=== PATIENT | male | born 1975 | race African-American/Black ===

== ENCOUNTER 2025-06-24 17:48 | Emergency (ER) | payer OTHER, SELFPAY ==
--- OUTSIDE RECORDS SUMMARY | 2025-06-10 14:15 | XMS_ITS | Encounter Summary ---
Author Organization [facility] FanTrail s tem Address [id number] [address] [place] [address] Care Team Providers Care School Transportation Director Name Role Phone Andrew Hightower MD Primary Care Provider [phone] Reason for Visit * ReasonCommentsSleep ApneaLS: 01/23/2024Needs supplies and believes time to get new machineDME: [facility] Encounter Details DateTypeDepartmentCare Team (Latest Contact Info)Dhaxeushxby62/27/2025 3:15 PM EDTOffice Visit [facility] [address] [place] [address] Michell San MD [address] [place] [address] DANIELA (obstructive sleep apnea) (Primary Dx); Aerophagia; Difficulty with BiPAP use Social History Tobacco UseTypesPacks/DayYears UsedDateSmoking Tobacco: FormerSmokeless Tobacco: NeverAlcohol UseStandard Drinks/WeekCommentsYes0 (1 standard drink = 0.6 oz pure alcohol)OCCASIONALChildcareAnswerDate OrjmmsruQoecxfeobNpwahtu27/12/2019 EmploymentAnswerDate BenuexnxRvuwqntwbuKohvaxi31/12/2019Hunger ScreeningAnswer Date RecordedWithin the past 12 months we worried whether our food would run out before we got money to buy more.Never True03/14/2025Within the past 12 months the food we bought just didn't last and we didn't have money to get more.Never True03/14/2025Purpose - LifeAnswerDate RecordedPurpose and direction in life Hkzdcpt5109/25/2020ex and Gender InformationValueDate RecordedSex Assigned at BirthNot on fileLegal PznCrrp6901/07/2016 11:43 AM EDTGender IdentityNot on file Sexual OrientationNot on filedocumented as of this encounter Last Filed Vital Signs Vital SignReadingTime TakenCommentsBlood Xqagqxxy063/7810 3:27 PM EDT Rszhj697906/10/2025 3:27 PM EDTTemperature--Respiratory Rate--Oxygen Pgttquicse26% 06/10/2025 3:27 PM EDTInhaled Oxygen Concentration--Ezyijx902.8 kg (317 lb) 06/10/2025 3:27 PM EFGKopuvo230.3 cm (5' 9.02 )06/10/2025 3:27 PM EDTBody Mass Index46.7906/10/2025 3:27 PM EDTdocumented in this encounter Patient Instructions * Patient Instructions* Michell San MD - 06/10/2025 3:15 PM EDT 1. Patient's machine was last replaced in 2015. Would use and benefit from a new PAP machine that is remote capable. Decrease the minimum EPAP to 6 for aerophagia. 2. Download reviewed 3. [place] noted, normal 4. Follow up virtual visit after set up documented in this encounter Progress Notes * Michell San MD - 06/10/2025 3:15 PM EDT Images from the original note were not included. [address] [place] [address] Patient: Dilshad Mcmahon Date of : 1975 Encounter Date: 06/10/2025 History of Present Illness: The patient is a 50 y.o. male, is here for follow up of DANIELA. He is here today unaccompanied. Since our last visit his primary care provider put him on Ozempic and he has been intentionally losing weight. Since he is lost weight he has noted some pressure intolerance and aerophagia. Mask interface: FFM (Simplus, large) [] Epistaxis [x] Aerophagia [x] Pressure intolerance [] Skin irritation [] Mask leak Saturdays are long haul days. BT- 9-10p (noise machine, son (2) in bed, in bed, no pets) JUMA- depends on son WASO- around 3a to urinate, if son's moving WT- 4:20a (first alarm goes off) Naps- not during week days (sometimes on Tuesday and Sundays) Cleaning machine / cleaning supplies = soap and water Nocturnal behaviors / RLS = denies Drowsy driving = denies Physical Exam: BP 145/78 (BP Site: Right Arm, BP Postition: Sitting) Pulse 69 Ht 175.3 cm (5' 9.02 ) Wt (!) 143.8 kg (317 lb) SpO2 96% BMI 46.79 kg/m?? General Appearance - Awake, alert, oriented, in no acute distress 06/10/2025 3:00 PM 01/23/2024 3:00 PM [place] Sleepiness Scale Sitting and Reading 0 0 Watching TV 0 0 Sitting inactive in a public place (theater, meeting) 0 0 As a passenger in a car for an hour without a break 1 0 Lying down in the afternoon to rest 2 2 Sitting and talking to someone 0 0 Sitting quietly after lunch (without alcohol) 0 0 In a car, while stopped for a few minutes in traffic 0 0 Total 3 2 Assessment: 1. Obstructive sleep apnea (initial testing unable for review, prior notation describes an AHI of 161, PSG 2002) currently on min EPAP 8, max IPAP 18, PS 4 cm of water (retitration 2016, weight 351) with excellent benefit and compliance but worsening pressure intolerance /aerophagia due to weight loss 2. Coronary disease 3. Essential hypertension 4. Aerophagia 5. Obesity, BMI 46 Plan: 1. Patient's machine was last replaced in 2016. Would use and benefit from a new PAP machine that is remote capable. Decrease the minimum EPAP to 6 for aerophagia. 2. Download reviewed 3. [place] noted, normal 4. Follow up virtual visit after set up Michell San MD Pulmonary and Sleep Medicine [facility] Past Medical, Family, and Social History Update: The following portions of the patient's history were reviewed and updated as appropriate: allergies, current medications, past family history, past medical history, past social history, past surgicalhistory and problem list. 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 ([facility]) 09/10/2019 Coronary artery disease Diabetes mellitus type 2, controlled ([facility] DM (diabetes mellitus) ([facility] HLD (hyperlipidemia) HTN (hypertension) Nicotine dependence DANIELA (obstructive sleep apnea) cpap Past Surgical History: Procedure Laterality Date CARDIAC CATHETERIZATION COLONOSCOPY N/A 06/05/2020 Performed by Yunior Tello MD at [facility] CORONARY STENT PLACEMENT EGD N/A 06/05/2020 Performed by Yunior Tello MD at [facility] RHINOPLASTY Family History Problem Relation Age of Onset Cancer Mother Hypertension Father Diabetes Father Current Outpatient Medications Medication Sig Dispense Refill aspirin 81 mg Take 1 tablet (81 mg total) by mouth in the morning. atorvastatin (LIPITOR) 40 mg tablet TAKE 1 TABLET BY MOUTH EVERY DAY 30 tablet 1 cloNIDine (CATAPRES) 0.1 mg tablet Take 1 tablet (0.1 mg total) by mouth in the morning. cyanocobalamin (vitamin B-12) 1000 MCG tablet Take 1 tablet (1,000 mcg total) by mouth every other day. ferrous sulfate 325 (65 FE) mg tablet Take 1 tablet (325 mg total) by mouth in the morning and 1 tablet (325 mg total) in the evening. Take with meals. isosorbide mononitrate (IMDUR) 60 mg 24 hr tablet Take 1 tablet (60 mg total) by mouth daily. 30 tablet 11 losartan-hydroCHLOROthiazide (HYZAAR) 100-25 mg per tablet Take 1 tablet by mouth in the morning. metFORMIN (GLUCOPHAGE) 500 mg tablet Take 2 tablets (1,000 mg total) by mouth in the morning and 2 tablets (1,000 mg total) before bedtime. TURMERIC ORAL Take by mouth. No current facility-administered medications for this visit. (All medications reviewed and updated by provider since last office visit or hospitalization) Allergies: No known allergies Tobacco History: Social History Tobacco Use Smoking Status Former Smokeless Tobacco Never (If patient a smoker, smoking cessation counseling offered) Social History: Social History Substance and Sexual Activity Alcohol Use Yes Alcohol/week: 0.0 standard drinks of alcohol Comment: OCCASIONAL documented in this encounter Plan of Treatment DateTypeDepartmentCare Team (Latest Contact Info)Twrtbisdlku26/26/2026 3:15 PM ESTOffice Visit [facility] [address] [place] [address] Michell Sna MD [address] [place] [address] documented as of this encounter Visit Diagnoses Diagnosis DANIELA (obstructive sleep apnea)- Primary Obstructive sleep apnea (adult) (pediatric) Aerophagia Gastrointestinal malfunction arising from mental factors Difficulty with BiPAP use documented in this encounter Care Teams Team MemberRelationshipSpecialtyStart DateEnd Date Andrew Hightower MD [facility] [place] [address] PCP - General01/31/17documented as of this encounter
[2025-06-24 17:52] VITALS: BP 156/88; PULSE 73; TEMP 36.6; O2SAT 95; BMI 45.9
--- NOTE | 2025-06-24 18:04 | XR_ITS ---
The [address] [address] Patient Name: BLANQUITA FERGUSON MRN: [id number] date: 1975 Sex: M Assigned Patient Location: ER Current Patient Location: ER Accession/Order Number: [id number] Exam Date: 06/24/2025 18:05 Report Date: 06/24/2025 18:35 At the request of: ANGIE ALLEN Procedure: XR chest 1V PA CHEST: CLINICAL HISTORY: CP COMPARISON: None Unremarkable cardiomediastinal silhouette. Lungs clear. No effusion or pneumothorax. XR/XR chest 1V IMPRESSION: Negative acute pleural-parenchymal disease. Impression dictated by: Ede Guaman M.D. 06/24/2025 6:35 PM Dictation Location: [place] [address] Electronically authenticated by: [id number] Y Date: 06/24/2025 18:35
--- NOTE | 2025-06-24 18:04 | ED.CHESTPAI1 ---
Documented by User: Kaycee Mahajan 06/24/25 19:02 HPI - Chest Pain General Chief Complaint: Chest Pain Stated Complaint: CHEST PAIN IN COLLAR BONE AREA Time Seen by Provider: 06/24/25 18:00 Source: patient Mode of arrival: walk-in Limitations: no limitations History of Present Illness HPI narrative: 50 year old male presents to the ED for left upper chest pain. Onset was 06/20/25. Denies fever, chills, injury, SOB, dizziness, diaphoresis. States he did weight lifting the day prior; chest and shoulders. He states normally his soreness does not last this long. He does have a cardiac stent. Denies recent travel or surgery. The pain is not worse with movement or inspiration. Denies pain currently. Related Data Home Medications ?Medication ?Instructions ?Recorded ?Confirmed aspirin 81 mg capsule 81 mg PO DAILY 06/24/25 06/24/25 atorvastatin 40 mg tablet 40 mg PO DAILY 06/24/25 06/24/25 clonidine HCl 0.1 mg tablet 0.1 mg PO DAILY 06/24/25 06/24/25 metformin 1,000 mg tablet 1,000 mg PO BID 06/24/25 06/24/25 Allergies Allergy/AdvReac Type Severity Reaction Status Date / Time No Known Drug Allergies Allergy Verified 06/24/25 18:00 Review of Systems ROS Constitutional Denies: fever or chills Ears, nose, mouth, and throat Denies: neck pain Cardiovascular Reports: chest pain; Denies: palpitations or edema Respiratory Denies: shortness of breath or cough Gastrointestinal Denies: abdominal pain, nausea or vomiting Musculoskeletal Denies: back pain, neck pain or extremity pain Neurological Denies: headache, weakness in extremities or dizziness PFSH PFSH Social History Little interest or pleasure in doing things: not at all Feeling down, depressed, or hopeless: not at all Exam Constitutional Vital Signs, click to edit/add: Last Vital Signs Temp 97.8 F 06/24/25 17:52 Pulse 72 06/24/25 19:28 Resp 16 06/24/25 19:28 BP 148/82 H 06/24/25 19:28 Pulse Ox 99 06/24/25 19:28 O2 Del Method Room Air 06/24/25 19:28 Common normals: no apparent distress and oriented x3 General appearance: cooperative HENMT Common normals: moist oral mucous membranes Eye Common normals: conjunctivae normal and no scleral icterus Neck & C-Spine Common normals: supple Chest Common normals: palpation of chest normal Chest: symmetrical chest wall rise Respiratory Common normals: normal respiratory effort and clear to auscultation bilaterally Effort & inspection: able to speak in complete sentences and symmetric chest movement Cardio Common normals: regular rate and regular rhythm Neuro Common normals: oriented x3, moves all extremities and no focal motor deficits Sensorium/orientation: awake and alert Speech: speech normal Course Vital Signs Vital signs: Vital Signs Temperature 97.8 F 06/24/25 17:52 Pulse Rate 73 06/24/25 17:52 Respiratory Rate 18 06/24/25 17:52 Blood Pressure 156/88 H 06/24/25 17:52 Pulse Oximetry 95 06/24/25 17:52 Oxygen Delivery Method Room Air 06/24/25 17:52 Temperature 97.8 F 06/24/25 17:52 Pulse Rate 72 06/24/25 19:28 Respiratory Rate 16 06/24/25 19:28 Blood Pressure 148/82 H 06/24/25 19:28 Pulse Oximetry 99 06/24/25 19:28 Oxygen Delivery Method Room Air 06/24/25 19:28 MDM - Chest Pain MDM Narrative Medical decision making narrative: Chest x-ray was negative for acute findings. Laboratory studies were unremarkable, including the troponin level. Symptom onset was 06/20/25. Findings were discussed with the patient. He will be discharged home at the recommendation of the ED attending. Follow up with pcp for a recheck, further evaluation and treatment. Return to the ED if symptoms worsen. Differential Diagnosis Differential diagnosis: Likely atypical chest pain, st elevation myocardial infarction, costochondritis and chest pain Medical Records Data Attestation: I reviewed the patient's medical records. Lab Data Attestation: I reviewed the patient's lab results. Labs: Lab Results 06/24/25 Range/Units 18:20 WBC 7.0 (4.0-11.0) 10^3/uL RBC 4.20 L (4.70-6.10) 10^6/uL Hgb 13.1 L (14.0-18.0) g/dL Hct 38.1 L (42.0-54.0) % MCV 90.7 (80.0-94.0) fL MCH 31.2 (25.9-34.0) pg MCHC 34.4 (29.9-35.2) g/dL RDW 12.4 (11.0-15.0) % Plt Count 273 (150-450) 10^3/uL MPV 8.0 L (9.5-13.5) fL Neut % (Auto) 49.8 (43.0-75.0) % Lymph % (Auto) 34.6 (20.5-60.0) % Mathews % (Auto) 10.1 (1.7-12.0) % Eos % (Auto) 4.3 (0.9-7.0) % Baso % (Auto) 0.9 (0.2-2.0) % Neut # (Auto) 3.5 (1.4-6.5) 10^3/uL Lymph # (Auto) 2.4 (1.2-3.8) 10^3/uL Mathews # (Auto) 0.7 (0.3-0.8) 10^3/uL Eos # (Auto) 0.3 (0.0-0.7) 10^3/uL Baso # (Auto) 0.1 (0.0-0.1) 10^3/uL Abs Immat Gran (auto) 0.02 (0.00-0.03) 10^3/uL Imm/Tot Granulo (auto) 0.3 (0.0-0.5) % Sodium 141 (136-145) mmol/L Potassium 3.6 (3.5-5.1) mmol/L Chloride 105 (98-107) mmol/L Carbon Dioxide 30.7 (21.0-32.0) mmol/L Anion Gap 8.9 BUN 12.0 (7.0-18.0) mg/dL Creatinine 1.37 H (0.70-1.30) mg/dL Est GFR ( Amer) >60 (>=60 mL/min/1.73m^2) Est GFR (Non-Af Amer) 55 L (>=60 mL/min/1.73m^2) BUN/Creatinine Ratio 8.8 Glucose 95 (74-106) mg/dL Calcium 9.3 (8.5-10.1) mg/dL Total Bilirubin 0.5 (0.2-1.0) mg/dL AST 19 (15-37) U/L ALT 37 (16-63) U/L Alkaline Phosphatase 91 (46-116) U/L Troponin I High Sens 5.5 (4.0-76.1) pg/mL Total Protein 7.1 (6.4-8.2) g/dL Albumin 3.4 (3.4-5.0) g/dL Globulin 3.7 g/dL Albumin/Globulin Ratio 0.9 Imaging Data Chest x-ray: Attestation: I have reviewed the pertinent imaging results. Radiologist's impression: ITS Impressions Chest X-Ray 06/24/25 18:04 IMPRESSION: Negative acute pleural-parenchymal disease. Impression dictated by: Ede Guaman M.D. 06/24/2025 6:35 PM Dictation Location: [employer] Electronically authenticated by: [id number] Y Date: 06/24/2025 18:35 ECG Data Attestation: ?I have reviewed the pertinent ECG results. (EKG was reviewed by the attending physician. It showed sinus rhythm at a rate of 68. No acute ST segment changes. ) Interpretation: Measurements Intervals [place] Rate: 71 P: 46 AR: 176 QRS: 6 QRSD: 90 T: -18 QT: 346 QTc: 368 Interpretive Statements 1100 Sinus rhythm 8102 Low QRS voltage in chest leads 9120 atypical ECG No previous ECG available for comparison Heart Score History: Slightly/Non-Suspicious ECG: Normal Age: >45-<65 years Risk Factors: >3 Risk Factors/ HX of CAD:2 Troponin: <Normal Limit Total Heart Score Recommendations & Risks:: 3 Discharge Plan Discharge Chief Complaint: Chest Pain Clinical Impression: Atypical chest pain Patient Disposition: Home, Self-Care Time of Disposition Decision: 19:00 Condition: Good Mode of Transportation: Private Vehicle Prescriptions / Home Meds: No Action atorvastatin 40 mg tablet 40 mg PO DAILY clonidine HCl 0.1 mg tablet 0.1 mg PO DAILY metformin 1,000 mg tablet 1,000 mg PO BID aspirin 81 mg capsule 81 mg PO DAILY Print Language: Micronesian Instructions: Chest Pain (ED), Chest Wall Pain (ED) Additional Instructions: Return to the ED for worsening symptoms. Referrals: AJ JOHNSON [Primary Care Provider, Family Practice] - 1 week Discharge Date/Time: 06/24/25 19:32 Documented by User: Aj Gutierrez DO 06/25/25 07:11 HPI - Chest Pain General Chief Complaint: Chest Pain Stated Complaint: CHEST PAIN IN COLLAR BONE AREA Time Seen by Provider: 06/24/25 18:00 Related Data Home Medications ?Medication ?Instructions ?Recorded ?Confirmed aspirin 81 mg capsule 81 mg PO DAILY 06/24/25 06/24/25 atorvastatin 40 mg tablet 40 mg PO DAILY 06/24/25 06/24/25 clonidine HCl 0.1 mg tablet 0.1 mg PO DAILY 06/24/25 06/24/25 metformin 1,000 mg tablet 1,000 mg PO BID 06/24/25 06/24/25 Allergies Allergy/AdvReac Type Severity Reaction Status Date / Time No Known Drug Allergies Allergy Verified 06/24/25 18:00 PFSH PFSH Social History Little interest or pleasure in doing things: not at all Feeling down, depressed, or hopeless: not at all Exam Constitutional Vital Signs, click to edit/add: Last Vital Signs Temp 97.8 F 06/24/25 17:52 Pulse 72 06/24/25 19:28 Resp 16 06/24/25 19:28 BP 148/82 H 06/24/25 19:28 Pulse Ox 99 06/24/25 19:28 O2 Del Method Room Air 06/24/25 19:28 Course Vital Signs Vital signs: Vital Signs Temperature 97.8 F 06/24/25 17:52 Pulse Rate 73 06/24/25 17:52 Respiratory Rate 18 06/24/25 17:52 Blood Pressure 156/88 H 06/24/25 17:52 Pulse Oximetry 95 06/24/25 17:52 Oxygen Delivery Method Room Air 06/24/25 17:52 Temperature 97.8 F 06/24/25 17:52 Pulse Rate 72 06/24/25 19:28 Respiratory Rate 16 06/24/25 19:28 Blood Pressure 148/82 H 06/24/25 19:28 Pulse Oximetry 99 06/24/25 19:28 Oxygen Delivery Method Room Air 06/24/25 19:28 MDM - Chest Pain Lab Data Labs: Lab Results 06/24/25 Range/Units 18:20 WBC 7.0 (4.0-11.0) 10^3/uL RBC 4.20 L (4.70-6.10) 10^6/uL Hgb 13.1 L (14.0-18.0) g/dL Hct 38.1 L (42.0-54.0) % MCV 90.7 (80.0-94.0) fL MCH 31.2 (25.9-34.0) pg MCHC 34.4 (29.9-35.2) g/dL RDW 12.4 (11.0-15.0) % Plt Count 273 (150-450) 10^3/uL MPV 8.0 L (9.5-13.5) fL Neut % (Auto) 49.8 (43.0-75.0) % Lymph % (Auto) 34.6 (20.5-60.0) % Mathews % (Auto) 10.1 (1.7-12.0) % Eos % (Auto) 4.3 (0.9-7.0) % Baso % (Auto) 0.9 (0.2-2.0) % Neut # (Auto) 3.5 (1.4-6.5) 10^3/uL Lymph # (Auto) 2.4 (1.2-3.8) 10^3/uL Mathews # (Auto) 0.7 (0.3-0.8) 10^3/uL Eos # (Auto) 0.3 (0.0-0.7) 10^3/uL Baso # (Auto) 0.1 (0.0-0.1) 10^3/uL Abs Immat Gran (auto) 0.02 (0.00-0.03) 10^3/uL Imm/Tot Granulo (auto) 0.3 (0.0-0.5) % Sodium 141 (136-145) mmol/L Potassium 3.6 (3.5-5.1) mmol/L Chloride 105 (98-107) mmol/L Carbon Dioxide 30.7 (21.0-32.0) mmol/L Anion Gap 8.9 BUN 12.0 (7.0-18.0) mg/dL Creatinine 1.37 H (0.70-1.30) mg/dL Est GFR ( Amer) >60 (>=60 mL/min/1.73m^2) Est GFR (Non-Af Amer) 55 L (>=60 mL/min/1.73m^2) BUN/Creatinine Ratio 8.8 Glucose 95 (74-106) mg/dL Calcium 9.3 (8.5-10.1) mg/dL Total Bilirubin 0.5 (0.2-1.0) mg/dL AST 19 (15-37) U/L ALT 37 (16-63) U/L Alkaline Phosphatase 91 (46-116) U/L Troponin I High Sens 5.5 (4.0-76.1) pg/mL Total Protein 7.1 (6.4-8.2) g/dL Albumin 3.4 (3.4-5.0) g/dL Globulin 3.7 g/dL Albumin/Globulin Ratio 0.9 Imaging Data Chest x-ray: Radiologist's impression: ITS Impressions Chest X-Ray 06/24/25 18:04 IMPRESSION: Negative acute pleural-parenchymal disease. Impression dictated by: Ede Guaman M.D. 06/24/2025 6:35 PM Dictation Location: [facility] Electronically authenticated by: [id number] Y Date: 06/24/2025 18:35 Heart Score Total Heart Score Recommendations & Risks:: 3 Discharge Plan Discharge Chief Complaint: Chest Pain Clinical Impression: Atypical chest pain Patient Disposition: Home, Self-Care Time of Disposition Decision: 19:00 Condition: Good Mode of Transportation: Private Vehicle Prescriptions / Home Meds: No Action atorvastatin 40 mg tablet 40 mg PO DAILY clonidine HCl 0.1 mg tablet 0.1 mg PO DAILY metformin 1,000 mg tablet 1,000 mg PO BID aspirin 81 mg capsule 81 mg PO DAILY Print Language: Micronesian Instructions: Chest Pain (ED), Chest Wall Pain (ED) Additional Instructions: Return to the ED for worsening symptoms. Referrals: AJ JOHNSON [Primary Care Provider, Family Practice] - 1 week Discharge Date/Time: 06/24/25 19:32
--- NOTE | 2025-06-24 18:11 | ECG_ITS ---
The [facility] Test Date: 2025-06-24 Pat Name: Dilshad Mcmahon Department: Room: - Gender: Male [employer] Representative: : 1975 Requested By: [id number] Order Number: [id number] Reading MD: ISIS BERMAN M.D. Measurements Intervals [place] Rate: 71 P: 46 IN: 176 QRS: 6 QRSD: 90 T: -18 QT: 346 QTc: 368 Interpretive Statements 1100 Sinus rhythm 8102 Low QRS voltage in chest leads 9120 atypical ECG No previous ECG available for comparison Electronically Signed On 06-24-2025 19:24:12 EST by ISIS BERMAN M.D.
[2025-06-24 18:37] LABS: Hematocrit 38.1 % (42.0-54.0); Hemoglobin 13.1 g/dL (14.0-18.0); Immature Granulocytes Abs Auto 0.02 10^3/uL (0.00-0.03); Immature Granulocytes Pct Auto 0.3 % (0.0-0.5); Lymphocytes Absolute Auto 2.4 10^3/uL (1.2-3.8); Mean Corpuscular HGB Conc 34.4 g/dL (29.9-35.2); Mean Corpuscular Hemoglobin 31.2 pg (25.9-34.0); Mean Corpuscular Volume 90.7 fL (80.0-94.0); Platelet Count 273 10^3/uL (150-450); Red Blood Count 4.20 10^6/uL (4.70-6.10); White Blood Count 7.0 10^3/uL (4.0-11.0)
--- OUTSIDE RECORDS SUMMARY | 2025-06-24 18:46 | XMS_ITS | Clinical Summary ---
Author Organization [facility] Address [address] [place] [address] Care Team Providers Care Pulp House Supervisor Name Role Phone Andrew Hightower MD Primary Care Provider [phone] Allergies No known active allergies Medications MedicationSigDispense QuantityRefillsLast FilledStart DateEnd DateStatus aspirin (Aspir-Low) 81 MG EC tablet 1 (one) time each day at the same time.Active Turmeric (QC Tumeric Complex) 500 MG capsule 1 (one) time each day at the same time.Active fluticasone (Flonase) 50 MCG/ACT nasal spray 1 (one) time each day at the same time PRNActive cyanocobalamin (Vitamin B-12) 1000 MCG tablet Take 1,000 mcg by mouth every other dayActive ferrous sulfate 325 (65 Fe) MG EC tablet Take 325 mg by mouth in the morning and 325 mg before bedtime. Do not crush, chew, or split..Active metFORMIN (Glucophage) 1000 MG tablet Indications:Controlled type 2 diabetes mellitus without complication, without long-term current use of insulin (HCC)TAKE 1 TABLET (1,000 MG) BY MOUTH IN THE MORNING AND IN THE EVENING WITH MEALS 200 tablet 4Active empagliflozin (Jardiance) 25 MG Indications:Microalbuminuric diabetic nephropathy (HCC)Take 1 tablet (25 mg) by mouth Daily 90 tablet 5Active isosorbide mononitrate ER (Imdur) 60 MG 24 hr tablet Indications:Essential hypertensionTAKE 1 TABLET BY MOUTH EVERY DAY 100 tablet 5Active losartan-hydroCHLOROthiazide (Hyzaar) 100-25 MG tablet Indications:Essential hypertensionTAKE 1 TABLET BY MOUTH EVERY DAY 100 tablet 5Active atorvastatin (Lipitor) 40 MG tablet Indications:Hyperlipidemia, unspecified hyperlipidemia typeTAKE 1 TABLET BY MOUTH EVERY DAY 100 tablet 5Active cloNIDine (Catapres) 0.1 MG tablet Indications:Benign essential hypertensionTake 1 tablet (0.1 mg) by mouth Daily TAKE 1 TABLET BY MOUTH EVERY DAY 90 tablet 5Active Semaglutide, 2 MG/DOSE, 8 MG/3ML solution pen-injector Indications:Type 2 diabetes mellitus with other specified complication, without long-term current use of insulin (HCC)Inject 2 mg under the skin 1 (one) time per week 8 mL 5Active baclofen (Lioresal) 10 MG tablet Indications:Hip strain, right, initial encounterTAKE 1 TABLET BY MOUTH THREE TIMES A DAY NEEDED FOR MUSCLE SPASMS FOR 7 DAYS 21 tablet 5Active baclofen (Lioresal) 10 MG tablet Indications:Hip strain, right, initial encounterTake 1 tablet (10 mg) by mouth 3 (three) times a day as needed for muscle spasms for up to 7 days 21 tablet 5108/24/2024Discontinued Active Problems ProblemNoted DateDiagnosed DateRight inguinal pain03/18/2025 Assessment & Plan (03/18/2025 3:27 PM EDT): Probably related to back and pinched nerve HTN (hypertension)03/27/2024Type 2 diabetes mellitus with other specified phmnkhfewxph80/13/2024 Assessment & Plan (03/18/2025 3:16 PM EDT): No Tobacco use Follow ADA 1800 diet low carbohydrate Continue Med Compliance Goal LDL less than 100Goal BP 130/80 Goal HgbA1c < 7.0% Monitor Feet, monitor for infection Needs Exercise Yearly eye exams Prior to your visit today we reviewed your chart and outlined testing and treatment needed foryour care. Reviewed poissble complications of diabetes including, loss of vision, kidney failure and increased risk of heart attacks and stroke. We made recommendations on how to control your blood sugars, and minimize your risk of these complications. We discussed your current barriers to a healthy living and importance of healthy diet and exercise. BMI 45.0-49.9, adult11/07/2023therosclerosis of [place] coronary artery of [place] heart with unstable angina kijbgupp36/02/2023oronary artery disease due to type 2 diabetes mxyrrtye93/24/2023 Assessment & Plan (11/07/2023 3:52 PM EDT): No Tobacco use Follow ADA 1800 diet low carbohydrate Continue Med Compliance Goal LDL less than 100Goal BP 130/80 Goal HgbA1c < 7.0% Monitor Feet, monitor for infection Needs Exercise Yearly eye exams Prior to your visit today we reviewed your chart and outlined testing and treatment needed foryour care. Reviewed poissble complications of diabetes including, loss of vision, kidney failure and increased risk of heart attacks and stroke. We made recommendations on how to control your blood sugars, and minimize your risk of these complications. We discussed your current barriers to a healthy living and importance of healthy diet and exercise. Asthmatic ruahssfhis31/24/2023enign essential calvbyolsyxy51/24/2023 Assessment & Plan (03/18/2025 3:16 PM EDT): Our specific goals, for your hypertension, is to keep your blood pressure less than 140/90, and theimportance of weight control. We made recommendations on how to control your blood pressure, and minimize your risk of these copmplications. We also discussed your current barriers to a healthy living and importance of healthy diet and exercise. Prior to your visit today we have reviewed your chart and formed a plan to assist with providing you the best possible care. We reviewed the possible complications of hypertension including, stroke, heart failure and kidney impairment. In addition, we discussed your medications, the importance of taking them as prescribed. DASH diet handouts Assessment & Plan (11/07/2023 3:52 PM EDT): Our specific goals, for your hypertension, is to keep your blood pressure less than 140/90, and theimportance of weight control. We made recommendations on how to control your blood pressure, and minimize your risk of these copmplications. We also discussed your current barriers to a healthy living and importance of healthy diet and exercise. Prior to your visit today we have reviewed your chart and formed a plan to assist with providing you the best possible care. We reviewed the possible complications of hypertension including, stroke, heart failure and kidney impairment. In addition, we discussed your medications, the importance of taking them as prescribed. DASH diet handouts Gastroesophageal reflux disease without tbllqmxoqkh45/24/2023Hyperlipidemia, wawbxshmzvc43/24/2023 Assessment & Plan (11/07/2023 3:58 PM EDT): This is a chronic medical condition that is stable since last assessment. No changes in treatment are suggested at this time. Continue Current meds. Iron deficiency tfzxhk2801/05/2023Lipoprotein deficiency tzznusbr88/24/2023 Microalbuminuric diabetic vsttzsmfoxg15/24/2023 Assessment & Plan (03/18/2025 3:18 PM EDT): A1c went stayed at 6.2 Mild concentric left ventricular hypertrophy (LVH)01/05/2023Morbid (severe) obesity due to excess mzcuwder49/24/2023 Assessment & Plan (11/07/2023 3:56 PM EDT): Weight loss and exercise encouraged Nonrheumatic mitral valve kslfdfivzqqyw99/24/2023OSA (obstructive sleep apnea) 01/05/2023Seasonal allergic rhinitis due to fzstbi1101/05/2023Severe acute respiratory syndrome coronavirus 2 (SARS-CoV-2) lzfcwtos49/24/2023Sigmoid jnywcecwzkmkux86/24/6446Wiscfrbajwg63/15/2019Abnormal result of cardiovascular function study01/14/2016Microalbuminuria due to type 2 diabetes mellitus Resolved Problems ProblemNoted DateDiagnosed DateResolved DateClosed fracture of rib of left side with delayed vlocmrr32Type 2 diabetes mellitus, without long- term current use of gohshke68/Memory loss Nicotine dependence, jypbefbmpuhhj27/24/202302/ Encounters DateTypeDepartmentCare NgosKivuookcemh05/09/2025Refill [facility] [address] [place] [phone] Merle Fuentes PA Hip strain, right, initial czjwrwodv09/28/2025bstract [facility] [address] [facility] [address] [place] [phone] Andrew Hightower MD 05/20/2025Telephone [facility] [address] [facility] [address] [place] [phone] Andrew Hightower MD 04/04/2025Telephone [facility] [address] [facility] [address] [place] [phone] Andrew Hightower MD 03/25/2025Results Follow-Up [facility] [address] [facility] [address] [place] [phone] Andrew Hightower MD CBC and differential, Comprehensive metabolic panel, Lipid panel, Additional followed-up results: 3from Last 3 Months Family History Medical HistoryRelationNameCommentsNo Known ProblemsBrotherNo Known Problems DaughterDiabetesFatherHypertensionFatherCancerMotherDiabetesMotherHypertension MotherOvarian cancerPaternal GrandmotherNo Known ProblemsSonRelationNameStatus CommentsBrother1 brotherDaughterAlive2 daughtersFatherDeceasedMotherDeceased Paternal GrandmotherSonAlive3 sons Social History Tobacco UseTypesPacks/DayYears UsedDateSmoking Tobacco: NeverSmokeless Tobacco: Never Tobacco Cessation:Counseling Given: Yes Alcohol UseStandard Drinks/WeekCommentsYes2 (1 standard drink = 0.6 oz pure alcohol)PHQ-2AnswerDate RecordedPatient Health Questionnaire-2 Omqou855 Sex and Gender InformationValueDate RecordedSex Assigned at BirthNot on file Legal LtqOxoy3610/27/2022 7:46 PM EDTGender IdentityNot on fileSexual Orientation Not on file Last Filed Vital Signs Vital SignReadingTime TakenCommentsBlood Qqkgqnnx799/8208 3:05 PM EDT Ixkqe399003/18/2025 3:05 PM EDTTemperature--Respiratory Jxaj057910/12/2024 9:30 AM ESTOxygen Jbsyhdaxas36%03/18/2025 3:05 PM EDTInhaled Oxygen Concentration-- Xjnwye900 kg (331 lb)03/18/2025 3:05 PM TWBVqqveu877.3 cm (5' 9 )03/18/2025 3:05 PM EDTBody Mass Index48.8803/18/2025 3:05 PM EDT Plan of Treatment DateTypeDepartmentCare Team (Latest Contact Info)Pwnqusbewfm66/25/2025 4:30 PM ESTOffice Visit [facility] [address] [facility] [address] [place] [phone] Andrew Hightower MD 112 [facility] [address] [place] [address] Health MaintenanceDue DateLast DoneCommentsCT Bakasoxytpxg1975FIT-DNA 1975FIT1975FOBT1975 8219Ndnxdywsxzmtp1975Pneumococcal Vaccine: Pediatrics (0 to 5 Years) and At-Risk Patients (6 to 64 Years) (1 of 2 - PCV)1994Diabetes: Retinopathy Ckpbpeztb58/, 03/23/2021, 04/07/2020, Additional history existsCOVID-19 Vaccine (2024- season) /, 03/16/2021Influenza Vaccine (#1)2025Diabetes: Hemoglobin A1C/11/2024, 10/12/2024, 03/27/2024, Additional history existsDiabetes: Urine Protein Zdpawxmkf81/08/234025/03/2025, 03/22/2024, 10/25/2022, Additional history ylfqbbVacmjoxragm71Colorectal Cancer Hklxeteqs51/22/2030 Procedures Procedure NamePriorityDate/TimeAssociated DiagnosisCommentsMICROALBUMIN / CREATININE URINE TAZNXGaokdon37/08/2025 11:36 AM EDT Type 2 diabetes mellitus with other specified complication, without long-term current use of insulin (HCC) Annual physical exam POCT GLYCATED HEMOGLOBIN, GNBNEMnjqtqm60/04/2025 3:16 PM EDT Type 2 diabetes mellitus with other specified complication, without long-term current use of insulin ([facility]) COLOR FUNDUS PHOTOGRAPHY - OU - BOTH JWAGMliyetg56/15/2022 12:00 PM EDT WOUGRNAMLWVHzznhui82/22/2020 12:00 PM EDT from Last 3 Months or Most Recently Relevant to Health Maintenance Results * Microalbumin / creatinine urine ratio (03/22/2025 11:36 AM EDT)ComponentValue Ref RangeTest MethodAnalysis TimePerformed AtPathologist SignatureCREATININE, RANDOM EADRF85419 - 320 mg/dLQUESTALBUMIN, URINE2.3See Note: mg/dLQUEST Comment: Reference Range: Reference Range Not established ALBUMIN/CREATININE RATIO, RANDOM URINE16<30 mg/g creatQUESTComment: The ADA defines abnormalities in albumin excretion as follows: Albuminuria Category ?Result (mg/g creatinine) Normal to Mildly increased <30 Moderately increased ? 30-299 Severely increased > OR = 300 The ADA recommends that at least two of three specimens collected within a 3-6 month period be abnormal before considering a patient to be within a diagnostic category. Specimen (Source)Anatomical Location / LateralityCollection Method / Volume Collection TimeReceived TimeUrineUrine specimen obtained by clean catch procedure / Sutdjzd7103/22/2025 11:36 AM EDT03/22/2025 11:39 AM EDT Narrative [facility] - 03/23/2025 10:50 AM EDT FASTING:YES FASTING: YES Resulting Agency Comment Performing Organization Information ?Site ID: QPT ?Name: [facility] ?Address: [address] [place] [address], [address] [place] [phone] ?Director: Junior Montgomery MD Authorizing ProviderResult TypeResult StatusAndrew Hightower MDLAB URINE ORDERABLES Final ResultPerforming OrganizationAddressCity/State/ZIP CodePhone Number [facility] * (ABNORMAL) POCT Glycated hemoglobin, total (03/18/2025 3:16 PM EDT)Component ValueRef RangeTest MethodAnalysis TimePerformed AtPathologist Signature Hemoglobin A1C6.2Specimen (Source)Anatomical Location / LateralityCollection Method / VolumeCollection TimeReceived KumeKdwzi83/04/2025 3:16 PM EDT Narrative Authorizing ProviderResult TypeResult Barbra Hightower MDPOINT OF CARE TEST ENTER/EDIT ORDERABLESFinal Result * Color Fundus Photography - OU - Both Eyes (03/29/2022 12:00 PM EDT)Anatomical RegionLateralityModalityHeadFundus PhotographySpecimen (Source)Anatomical Location / LateralityCollection Method / VolumeCollection TimeReceived Time 03/29/2022 12:00 PM EDT Narrative 03/29/2022 12:00 PM EDT PERFORMED AT [facility] LOCATION:[id number] No diabetic retinopathy Procedure Note CONVERSION, GENERIC - 12/29/2022 PERFORMED AT [facility] LOCATION:[id number] No diabetic retinopathy Authorizing ProviderResult TypeResult Barbra Hightower MDOPHTH PHOTOGRAPHY Final Result * Colonoscopy (06/05/2020 12:00 PM EDT)Anatomical RegionLateralityModality EndoscopySpecimen (Source)Anatomical Location / LateralityCollection Method / VolumeCollection TimeReceived Time06/05/2020 12:00 PM EDT Narrative 06/05/2020 12:00 PM EDT PERFORMED AT [facility] LOCATION:[id number] Diverticulosis No Cancer Procedure Note CONVERSION, GENERIC - 12/29/2022 PERFORMED AT [facility] LOCATION:[id number] Diverticulosis No Cancer Authorizing ProviderResult TypeResult Barbra Hightower MDENDOSCOPY PROCEDURE ORDERABLESFinal Result from Last 3 Months or Most Recently Relevant to Health Maintenance Insurance Care Teams Team MemberRelationshipSpecialtyStart DateEnd Date Andrew Hightower MD [address] [address] [facility]
--- OUTSIDE RECORDS SUMMARY | 2025-06-24 18:46 | XMS_ITS | Clinical Summary ---
Author Organization [facility] Address [id number] [address] [place] [address] Care Team Providers Care Technology Training Associate Name Role Phone Andrew Hightower MD Primary Care Provider [phone] Allergies Active AllergyReactionsCriticalityNoted DateCommentsNo Known Qazbtgrqr49/06/2017 Other reaction(s): Unknown Medications MedicationSigDispense QuantityRefillsLast FilledStart DateEnd DateStatus metFORMIN (GLUCOPHAGE) 500 mg tablet Take 2 tablets (1,000 mg total) by mouth in the morning and 2 tablets (1,000 mg total) before bedtime.Active isosorbide mononitrate (IMDUR) 60 mg 24 hr tablet Take 1 tablet (60 mg total) by mouth daily. 30 tablet 11012/22/2017Active ferrous sulfate 325 (65 FE) mg tablet Take 1 tablet (325 mg total) by mouth in the morning and 1 tablet (325 mg total) in the evening. Take with meals.Active atorvastatin (LIPITOR) 40 mg tablet TAKE 1 TABLET BY MOUTH EVERY DAY 30 tablet Active TURMERIC ORAL Take by mouth.Active aspirin 81 mg Take 1 tablet (81 mg total) by mouth in the morning.Active cyanocobalamin (vitamin B-12) 1000 MCG tablet Take 1 tablet (1,000 mcg total) by mouth every other day.Active cloNIDine (CATAPRES) 0.1 mg tablet Take 1 tablet (0.1 mg total) by mouth in the morning.Active losartan-hydroCHLOROthiazide (HYZAAR) 100-25 mg per tablet Take 1 tablet by mouth in the morning.4Active Active Problems Patient Care Coordination No te Formatting of this note migh t be different from the original. DME: [facility] Blanco ProblemNoted DateDiagnosed DateClass 3 severe obesity due to excess calories without serious comorbidity in adult09/10/20198348Gwiqvkxhfil58/15/2019OSA treated with BiPAP110/11/2015Coronary artery disease involving wiyot coronary artery of wiyot heart without angina fioplern09/21/2016Abnormal result of cardiovascular function study01/14/2016HLD (hyperlipidemia)HTN (hypertension) Resolved Problems ProblemNoted DateDiagnosed DateResolved DateAbnormal nuclear stress test Stented coronary ygsdrv68Morbid obesity due to excess kwzpryaw91hest pain Encounters DateTypeDepartmentCare BsaoReqlywfcfyi51/07/2025Telephone [facility] [address] [place] [address] Rosi Leigh RN 06/11/2025Telephone [facility] [address] [place] [address] Darya Broderick CMA 06/10/2025 3:15 PM EDTOffice Visit [facility] [address] [place] [address] Michell San MD DANIELA (obstructive sleep apnea) (Primary Dx); Aerophagia; Difficulty with BiPAP use06/10/2025Travelfrom Last 3 Months Family History Medical HistoryRelationNameCommentsDiabetesFatherHypertensionFatherCancerMother RelationNameStatusCommentsFatherDeceasedMotherDeceased Social History Tobacco UseTypesPacks/DayYears UsedDateSmoking Tobacco: FormerSmokeless Tobacco: Never Tobacco Cessation:Counseling Given: Not Answered Alcohol UseStandard Drinks/WeekCommentsYes0 (1 standard drink = 0.6 oz pure alcohol)OCCASIONALChildcareAnswerDate HhmcerpvJpuhyonpjXhzurtv23/12/2019 EmploymentAnswerDate XuyuyziyQzwyhfnpgvGntutqx69/12/2019Hunger ScreeningAnswer Date RecordedWithin the past 12 months we worried whether our food would run out before we got money to buy more.Never True03/14/2025Within the past 12 months the food we bought just didn't last and we didn't have money to get more.Never True03/14/2025Purpose - LifeAnswerDate RecordedPurpose and direction in life Nptdwtw5309/25/2020ex and Gender InformationValueDate RecordedSex Assigned at BirthNot on fileLegal QizCfsj8901/07/2016 11:43 AM EDTGender IdentityNot on file Sexual OrientationNot on file Last Filed Vital Signs Vital SignReadingTime TakenCommentsBlood Rmopjkoh440/7810 3:27 PM EDT Hcful572806/10/2025 3:27 PM VFSJhdcqnrxdrv91.2 ??C (97.1 ??F)04/13/2021 9:48 AM EDTRespiratory Bcyg040501/03/2023 11:18 AM EDTOxygen Ckxygaomml02%06/10/2025 3:27 PM EDTInhaled Oxygen Concentration--Mwwrgc750.8 kg (317 lb)06/10/2025 3:27 PM IOLAwzfdq380.3 cm (5' 9.02 )06/10/2025 3:27 PM EDTBody Mass Index46.7906/10/2025 3:27 PM EDT Plan of Treatment DateTypeDepartmentCare Team (Latest Contact Info)Yuvwjccsaor53/26/2026 3:15 PM ESTOffice Visit [facility] [address] [place] [address] Michell San MD [address] [facility] [address] [place] [address] Health MaintenanceDue DateLast DoneCommentsStatin Use: Uctvhdjypjvwkf1975 Depression Eoqysjuxa40/31/1987Adult BMI Follow Up Plan1993DTaP,Tdap and Td Vaccines (1 - Tdap)05/31/1994Zoster (Shingles) Vaccine (1 of 2)5COVID- 19 Vaccine (3 - 2024- season)/, 03/16/2021Influenza Vaccine 04/15/2025Tobacco Zqhcaulab36dult BMI Ledmtxzas59/27/2026 06/10/2025 Medical Devices Not on file Insurance Care Teams Team MemberRelationshipSpecialtyStart DateEnd Date Andrew [place] [address] [place] [address] PCP - [facility]01/31/17
--- OUTSIDE RECORDS SUMMARY | 2025-06-24 18:46 | XMS_ITS | Encounter Summary ---
Author Organization [facility] Address [address] [facility] [address] Care Team Providers Care Ethanol Operations Manager Name Role Phone Andrew Hightower MD Primary Care Provider [phone] Encounter Details DateTypeDepartmentCare Team (Latest Contact Info)Udgmwpqfcqo20/28/2025bstract [facility] [place] [facility] [address] [email or web address] [address] [place] [address] Andrew Hightower MD [address] [place] [address] Social History Tobacco UseTypesPacks/DayYears UsedDateSmoking Tobacco: NeverSmokeless Tobacco: NeverAlcohol UseStandard Drinks/WeekCommentsYes2 (1 standard drink = 0.6 oz pure alcohol)PHQ-2AnswerDate RecordedPatient Health Questionnaire-2 Tqdai889 Sex and Gender InformationValueDate RecordedSex Assigned at BirthNot on file Legal GyiPtag7910/27/2022 7:46 PM EDTGender IdentityNot on fileSexual Orientation Not on filedocumented as of this encounter Plan of Treatment DateTypeDepartmentCare Team (Latest Contact Info)Vgwviidpuib71/25/2025 4:30 PM ESTOffice Visit [facility] [address] [place] [phone] Andrew Hightower MD [address] [place] [address] documented as of this encounter Visit Diagnoses Not on filedocumented in this encounter Care Teams Team MemberRelationshipSpecialtyStart DateEnd Date Andrew Hightower MD [address] [address] PCP - GeneralFamily Medicine12/21/22documented as of this encounter
--- OUTSIDE RECORDS SUMMARY | 2025-06-24 18:46 | XMS_ITS | Encounter Summary ---
Author Organization [facility] Address [id number] [address] [place] [address] Care Team Providers Care Director Hair Name Role Phone Andrew Hightower MD Primary Care Provider [phone] Encounter Details DateTypeDepartmentCare Team (Latest Contact Info)Higvoixfapg58/07/2025Telephone [facility] [address] [place] [address] Rosi Leigh, RN Social History Tobacco UseTypesPacks/DayYears UsedDateSmoking Tobacco: FormerSmokeless Tobacco: NeverAlcohol UseStandard Drinks/WeekCommentsYes0 (1 standard drink = 0.6 oz pure alcohol)OCCASIONALChildcareAnswerDate ZfmwrszlVxvgwmknrZaducuu84/12/2019 EmploymentAnswerDate BawptivwVehiefqoxrNtmzkdl07/12/2019Hunger ScreeningAnswer Date RecordedWithin the past 12 months we worried whether our food would run out before we got money to buy more.Never True03/14/2025Within the past 12 months the food we bought just didn't last and we didn't have money to get more.Never True03/14/2025Purpose - LifeAnswerDate RecordedPurpose and direction in life Oghszrl3109/25/2020ex and Gender InformationValueDate RecordedSex Assigned at BirthNot on fileLegal KhrRejr6801/07/2016 11:43 AM EDTGender IdentityNot on file Sexual OrientationNot on filedocumented as of this encounter Miscellaneous Notes * Telephone Encounter - Rosi Leigh RN - 06/21/2025 11:09 AM EST Received call from [facility] - pt would need repeat PSG or HST to qualify for BiPAP - last diagnostic study done 2002, not scored at 4% documented in this encounter Plan of Treatment DateTypeDepartmentCare Team (Latest Contact Info)Daweprtgxmk44/26/2026 3:15 PM ESTOffice Visit [facility] [address] [facility] [place] [address] Michell San MD [address] [facility] [address] [place] [address] documented as of this encounter Visit Diagnoses Not on filedocumented in this encounter Care Teams Team MemberRelationshipSpecialtyStart DateEnd Date Andrew Hightower MD [facility] [address] PCP - General01/31/17documented as of this encounter
--- OUTSIDE RECORDS SUMMARY | 2025-06-24 18:46 | XMS_ITS | Encounter Summary ---
Author Organization [facility] tem Address [id number] [address] [place] [address] Care Team Providers Care Radiation Monitor Name Role Phone Andrew Hightower MD Primary Care Provider [phone] Encounter Details DateTypeDepartmentCare Team (Latest Contact Info)Xptxywguyst70/27/2025Travel Social History Tobacco UseTypesPacks/DayYears UsedDateSmoking Tobacco: FormerSmokeless Tobacco: NeverAlcohol UseStandard Drinks/WeekCommentsYes0 (1 standard drink = 0.6 oz pure alcohol)OCCASIONALChildcareAnswerDate PogonjexCzajhksxaOjfccby89/12/2019 EmploymentAnswerDate YjhcugpnKzltbvtdrbNpsxrcs17/12/2019Hunger ScreeningAnswer Date RecordedWithin the past 12 months we worried whether our food would run out before we got money to buy more.Never True03/14/2025Within the past 12 months the food we bought just didn't last and we didn't have money to get more.Never True03/14/2025Purpose - LifeAnswerDate RecordedPurpose and direction in life Ovgdpbp4309/25/2020ex and Gender InformationValueDate RecordedSex Assigned at BirthNot on fileLegal LiuWdlt6601/07/2016 11:43 AM EDTGender IdentityNot on file Sexual OrientationNot on filedocumented as of this encounter Plan of Treatment DateTypeDepartmentCare Team (Latest Contact Info)Xvsaxtbkcrb91/26/2026 3:15 PM ESTOffice Visit [facility] [address] [place] [phone] Michell San MD [address] [facility] [address] [place], [place] [id number] documented as of this encounter Visit Diagnoses Not on filedocumented in this encounter Care Teams Team MemberRelationshipSpecialtyStart DateEnd Date [place] [address] [place] [address] PCP - General01/31/17documented as of this encounter
--- OUTSIDE RECORDS SUMMARY | 2025-06-24 18:46 | XMS_ITS | Clinical Summary ---
Author Organization [facility] Address [address] [facility], [address] [place] [address] Care Team Providers Care Social And Human Services Assistant Name Role Phone Unavailable Primary Care Provider Unavailabl e Allergies No known active allergies Medications MedicationSigDispense QuantityRefillsLast FilledStart DateEnd DateStatus ibuprofen (IBU) 600 MG tablet Take 1 tablet by mouth every 6 hours as needed for Pain 120 tablet 07/21/2020Active Social History Tobacco UseTypesPacks/DayYears UsedDateSmoking Tobacco: Never AssessedSex and Gender InformationValueDate RecordedSex Assigned at BirthNot on fileLegal Sex Male09/25/2012 4:02 AM ESTGender IdentityNot on fileSexual OrientationNot on file Last Filed Vital Signs Vital SignReadingTime TakenCommentsBlood Sypdixet565/8507/21/2020 12:25 AM EST Yxmtg954407/21/2020 12:25 AM GETBgsnphqxpap19.6 ??C (97.8 ??F)07/21/2020 12:25 AM ESTRespiratory Xdew587009/21/2019 12:25 AM ESTOxygen Cqptgsrqnu79%07/21/2020 12:25 AM ESTInhaled Oxygen Concentration--Weight--Height--Body Mass Index-- Plan of Treatment Not on file Insurance
--- OUTSIDE RECORDS SUMMARY | 2025-06-24 18:46 | XMS_ITS | Encounter Summary ---
Author Organization [facility] Address [address] [facility] [place] [address] Care Team Providers Care Health Safety And Environment Manager Name Role Phone Andrew Hightower MD Primary Care Provider [phone] Reason for Visit * ReasonCommentsMed Refill Encounter Details DateTypeDepartmentCare Team (Latest Contact Info)Cfysnpbcdda35/09/2025Refill [facility] [address] [facility] [address] [place] [phone] Merle Fuentes PA [address] [place] [address] Hip strain, right, initial encounter Social History Tobacco UseTypesPacks/DayYears UsedDateSmoking Tobacco: NeverSmokeless Tobacco: NeverAlcohol UseStandard Drinks/WeekCommentsYes2 (1 standard drink = 0.6 oz pure alcohol)PHQ-2AnswerDate RecordedPatient Health Questionnaire-2 Yjsnn325 Sex and Gender InformationValueDate RecordedSex Assigned at BirthNot on file Legal EbuTvaz6810/27/2022 7:46 PM EDTGender IdentityNot on fileSexual Orientation Not on filedocumented as of this encounter Plan of Treatment DateTypeDepartmentCare Team (Latest Contact Info)Pvfkwwwcxuz58/25/2025 4:30 PM ESTOffice Visit [facility] [address] [place] [phone] Andrew Hightower MD [address] [place] [address] documented as of this encounter Visit Diagnoses Diagnosis Hip strain, right, initial encounter documented in this encounter Care Teams Team MemberRelationshipSpecialtyStart DateEnd Date Andrew Hightower MD [address] [facility] [address] [place] [address] PCP - GeneralFamily Medicine12/21/22documented as of this encounter
--- OUTSIDE RECORDS SUMMARY | 2025-06-24 18:46 | XMS_ITS | Encounter Summary ---
Author Organization [facility] tem Address [facility] [id number] [address] [place] [address] Care Team Providers Care Hospice Physician Name Role Phone Andrew Hightower MD Primary Care Provider Encounter Details DateTypeDepartmentCare Team (Latest Contact Info)Nwwhizdjxyf65/28/2025Telephone [facility] [address] [facility] [phone] Darya Broderick, [facility] Social History Tobacco UseTypesPacks/DayYears UsedDateSmoking Tobacco: FormerSmokeless Tobacco: NeverAlcohol UseStandard Drinks/WeekCommentsYes0 (1 standard drink = 0.6 oz pure alcohol)OCCASIONALChildcareAnswerDate OomdhzbiVnoludlffUbboiay57/12/2019 EmploymentAnswerDate NgcirpyiBxtbsqkhgrYyuunup78/12/2019Hunger ScreeningAnswer Date RecordedWithin the past 12 months we worried whether our food would run out before we got money to buy more.Never True03/14/2025Within the past 12 months the food we bought just didn't last and we didn't have money to get more.Never True03/14/2025Purpose - LifeAnswerDate RecordedPurpose and direction in life Lpiohze6809/25/2020ex and Gender InformationValueDate RecordedSex Assigned at BirthNot on fileLegal VkcBkom6601/07/2016 11:43 AM EDTGender IdentityNot on file Sexual OrientationNot on filedocumented as of this encounter Miscellaneous Notes * Telephone Encounter - Darya Broderick CMA - 06/11/2025 9:16 AM EDT [employer] PAP and PAP mask and supplies order with supportive documentation faxed to [facility]. documented in this encounter Plan of Treatment DateTypeDepartmentCare Team (Latest Contact Info)Pbzodehxnsp32/26/2026 3:15 PM ESTOffice Visit [facility] [address] [place] [address] Michell San MD [address] [facility] [address] [place] [address] documented as of this encounter Visit Diagnoses Not on filedocumented in this encounter Care Teams Team MemberRelationshipSpecialtyStart DateEnd Date Andrew Hightower MD [facility] [place] [address] PCP - General01/31/17documented as of this encounter
[2025-06-24 18:53] LABS: Alanine Aminotransferase 37 U/L (16-63); Albumin Globulin Ratio 0.9; Albumin Level 3.4 g/dL (3.4-5.0); Alkaline Phosphatase 91 U/L (46-116); Anion Gap 8.9; Aspartate Amino Transferase 19 U/L (15-37); Blood Urea Nitrogen 12.0 mg/dL (7.0-18.0); Calcium 9.3 mg/dL (8.5-10.1); Carbon Dioxide 30.7 mmol/L (21.0-32.0); Chloride 105 mmol/L (98-107); Estimated GFR (African America >60 (>=60 mL/min/1.73m^2); Estimated GFR (Non-African Ame 55 (>=60 mL/min/1.73m^2); Globulin 3.7 g/dL; Glucose 95 mg/dL (74-106); Potassium 3.6 mmol/L (3.5-5.1); Sodium 141 mmol/L (136-145); Total Protein 7.1 g/dL (6.4-8.2)
[2025-06-24 19:28] VITALS: BP 148/82; PULSE 72; O2SAT 99
== END 2025-06-24 19:32 | disposition home or self-care (01) ==
PROVIDERS: Nurse Practitioner Family; Emergency Provider Student in an Organized Health Care Education/Training Program; PCP Family Medicine
DX: R07.89 Other chest pain (principal)
CPT/HCPCS: 36415; 71045; 80053; 84484; 85025; 93005; 99285